=== PATIENT | male | born 1955 | race Caucasian/White ===

== ENCOUNTER 2018-06-19 10:02 | Emergency (ER) | payer SELFPAY ==
[~2018-06-19] VITALS: Ht 175.3 cm; Wt 61.4 kg
[2018-06-19 10:03] VITALS: BP 148/91
== END 2018-06-19 11:29 | disposition left against medical advice (07) ==
LOC: EMS 10:03
DX: S51.852A Open bite of left forearm, initial encounter (principal); W55.01XA Bitten by cat, initial encounter; Y93.89 Activity, other specified; Y92.89 Other specified places as the place of occurrence of the external cause; Y99.8 Other external cause status; Z53.21 Procedure and treatment not carried out due to patient leaving prior to being seen by health care provider